=== PATIENT | male | born 1945 | race Caucasian/White ===

== ENCOUNTER → 2016-05-15 | Outpatient (CLI) | payer MEDICARE, OTHER | LOC: CT 09:23 | DX: I71.2 Thoracic aortic aneurysm, without rupture (principal); R91.1 Solitary pulmonary nodule; J43.9 Emphysema, unspecified; I77.89 Other specified disorders of arteries and arterioles; Z95.1 Presence of aortocoronary bypass graft | CPT/HCPCS: 71275; J7050; Q9965 ==

== ENCOUNTER → 2016-06-19 | Outpatient (CLI) | payer MEDICARE, OTHER | LOC: HEART 5 14:19 | DX: J44.9 Chronic obstructive pulmonary disease, unspecified (principal) | CPT/HCPCS: 94060; 94729 ==

== ENCOUNTER → 2016-07-27 | Outpatient (CLI) | payer MEDICARE, OTHER | LOC: HEART 5 10:36 | DX: Z90.2 Acquired absence of lung [part of] (principal) | CPT/HCPCS: 71020-FX ==

== ENCOUNTER → 2016-09-11 | Outpatient (CLI) | payer MEDICARE, OTHER | LOC: KOH-I 14:55 | DX: R05 Cough (principal); J90 Pleural effusion, not elsewhere classified; J98.11 Atelectasis | CPT/HCPCS: 71020 ==

== ENCOUNTER → 2020-05-10 | Outpatient (CLI) | payer MEDICARE, OTHER ==
[~2020-05-10] MED LIST: COUMADIN4 MG PO; COUMADIN5 MG PO; ECOTRIN81 MG PO; FLOMAX0.4 MG PO; LEVAQUIN500 MG PO; LIPITOR TAB 1010 MG PO; MEDROL4 MG PO; METOPROLOL TART25 MG PO; PREDNISONE10 MG PO; STIOLTO RESPIMAT; SYNTHROID25 MCG PO; VENTOLIN HFA 66.7 GM INH; ZITHROMAX250 MG PO
== END ==
LOC: KOH-I 05-03 11:30
DX: R93.89 Abnormal findings on diagnostic imaging of other specified body structures (principal); I71.2 Thoracic aortic aneurysm, without rupture; J43.9 Emphysema, unspecified; R91.8 Other nonspecific abnormal finding of lung field
CPT/HCPCS: 71250

== ENCOUNTER → 2020-11-09 | Outpatient (CLI) | payer MEDICARE, OTHER | LOC: KOH-I 10:44 | DX: R91.8 Other nonspecific abnormal finding of lung field (principal) | CPT/HCPCS: 71250 ==

== ENCOUNTER 2020-12-10 11:01 | Emergency (ER) | payer MEDICARE, OTHER ==
[2020-12-10 11:34] LABS: RED BLOOD COUNT 4.61 M/UL (4.20-5.50); WHITE BLOOD COUNT 8.6 K/UL (4.5-11.0)
[2020-12-10 12:02] LABS: BUN/CREATININE RATIO 12 (0-10)
== END 2020-12-10 14:53 | disposition home or self-care (01) ==
LOC: ER1 11:01
PROVIDERS: Emergency Medicine
DX: I71.4 Abdominal aortic aneurysm, without rupture (principal); J44.9 Chronic obstructive pulmonary disease, unspecified; E03.9 Hypothyroidism, unspecified; F17.210 Nicotine dependence, cigarettes, uncomplicated
CPT/HCPCS: 71275; 80053; 82550; 82553; 83874; 84484; 85025; 85610; 85730; 93005; 99284; Q9967

== ENCOUNTER → 2021-03-15 | Outpatient (CLI) | payer MEDICARE, OTHER | LOC: RT 14:02 | DX: R09.02 Hypoxemia (principal); I95.1 Orthostatic hypotension | CPT/HCPCS: 36600; 82803 ==

== ENCOUNTER → 2021-07-26 | Outpatient (CLI) | payer MEDICARE, OTHER ==
[2021-07-26 12:09] LABS: BUN/CREATININE RATIO 15 (0-10)
== END ==
LOC: CT 11:00
PROVIDERS: Nurse Practitioner Family
DX: I71.2 Thoracic aortic aneurysm, without rupture (principal); I10 Essential (primary) hypertension; R10.9 Unspecified abdominal pain; Z95.2 Presence of prosthetic heart valve; R91.1 Solitary pulmonary nodule; N40.0 Benign prostatic hyperplasia without lower urinary tract symptoms
CPT/HCPCS: 36415; 71250; 80048; Q9967

== ENCOUNTER 2021-08-04 23:40 | Emergency (ER) | payer MEDICARE, OTHER ==
[2021-08-05 00:11] LABS: HEMOGLOBIN 15.5 gm/dl (14.0-17.5); RED BLOOD COUNT 4.68 M/UL (4.20-5.50); WHITE BLOOD COUNT 9.6 K/UL (4.5-11.0)
[2021-08-05 00:34] LABS: BUN/CREATININE RATIO 20 (0-10)
[2021-08-05] MEDS ORDERED: DOXYCYCLINE HY100 MG PO (01:47)
[2021-08-05] MEDS ORDERED: IPRAT-ALBUT 0.5-3 ML INH (01:47)
[2021-08-05] MEDS ORDERED: OMNICEF 300 MG300 MG PO (01:47)
[2021-08-05] MEDS ORDERED: PREDNISONE20 MG PO (01:47)
== END 2021-08-05 02:05 | disposition home or self-care (01) ==
LOC: ER1 23:40
PROVIDERS: Family Medicine
DX: J44.0 Chronic obstructive pulmonary disease with (acute) lower respiratory infection (principal); J18.9 Pneumonia, unspecified organism; E87.1 Hypo-osmolality and hyponatremia; Z79.01 Long term (current) use of anticoagulants; Z99.81 Dependence on supplemental oxygen; Z95.2 Presence of prosthetic heart valve; Z20.822 Contact with and (suspected) exposure to COVID-19
CPT/HCPCS: 0240U; 36600; 71045; 80053; 82550; 82553; 82803; 83605; 83880; 84484; 85025; 85610; 87040; 93005; 94664; 96374; 96375; 99285; J0696; J2930

== ENCOUNTER → 2021-08-16 | Outpatient (CLI) | payer MEDICARE, OTHER ==
[~2021-08-16] MED LIST changes: +DOXYCYCLINE HY100 MG PO; +IPRAT-ALBUT 0.5-3 ML INH; +OMNICEF 300 MG300 MG PO; +PREDNISONE20 MG PO
== END ==
LOC: KOH-I 10:04
DX: J44.0 Chronic obstructive pulmonary disease with (acute) lower respiratory infection (principal); J18.9 Pneumonia, unspecified organism; R91.8 Other nonspecific abnormal finding of lung field
CPT/HCPCS: 71046

== ENCOUNTER 2021-08-23 01:33 | Inpatient (IN) | payer MEDICARE, OTHER ==
[~2021-08-23] VITALS: Ht 182.9 cm; Wt 55.1 kg
[~2021-08-23 01:33] MED LIST changes: -METOPROLOL TART25 MG PO
[2021-08-23 02:11] LABS: HEMOGLOBIN 14.2 gm/dl (14.0-17.5); RED BLOOD COUNT 4.31 M/UL (4.20-5.50); WHITE BLOOD COUNT 16.7 K/UL (4.5-11.0)
[2021-08-23 02:35] LABS: BUN/CREATININE RATIO 26 (0-10)
[2021-08-23] MEDS ORDERED: PANTOPRAZOLE SO20 MG PO (11:56)
[2021-08-23] MEDS ORDERED: MEGESTROL400 MG/11 PO (11:57)
[2021-08-23] MEDS ORDERED: WARFARIN SODIUM4 MG PO (12:00)
[2021-08-23] MEDS ORDERED: WARFARIN SODIUM5 MG PO (12:03)
[2021-08-23] MEDS ORDERED: ATORVASTATIN CA10 MG PO (12:06)
[2021-08-23] MEDS ORDERED: ALBUTEROL2.5 MG/3 M INH (12:07)
[2021-08-23] MEDS ORDERED: TRELEGY ELLIPT1 EACH INH (12:08)
[2021-08-23] MEDS ORDERED: METOPROLOL TART50 MG PO (12:40)
[2021-08-24 02:26] LABS: HEMOGLOBIN 13.9 gm/dl (14.0-17.5); RED BLOOD COUNT 4.21 M/UL (4.20-5.50); WHITE BLOOD COUNT 16.2 K/UL (4.5-11.0)
[2021-08-24 02:48] LABS: BUN/CREATININE RATIO 26 (0-10)
[2021-08-25 04:13] LABS: HEMOGLOBIN 13.5 gm/dl (14.0-17.5); RED BLOOD COUNT 4.14 M/UL (4.20-5.50); WHITE BLOOD COUNT 14.4 K/UL (4.5-11.0)
[2021-08-25 04:38] LABS: BUN/CREATININE RATIO 36 (0-10)
[2021-08-26 04:32] LABS: HEMOGLOBIN 13.2 gm/dl (14.0-17.5); RED BLOOD COUNT 4.08 M/UL (4.20-5.50); WHITE BLOOD COUNT 13.1 K/UL (4.5-11.0)
[2021-08-26 05:07] LABS: BUN/CREATININE RATIO 44 (0-10)
[2021-08-26] MEDS ORDERED: OMNICEF 300 MG300 MG PO (11:23)
[2021-08-26] MEDS ORDERED: MEDROL DOSEPAK 24 MG PO (11:23)
== END 2021-08-26 13:36 | disposition home or self-care (01) | DRG 189 ==
LOC: ER1 01:33 → M/S 06:50 → CDU 06:50 → M/S 19:12
PROVIDERS: Student in an Organized Health Care Education/Training Program; ADMIT Internal Medicine
PROC: B24BZZZ Ultrasonography of Heart with Aorta (ICD-10-PCS; principal; 2021-08-23)
DX: J96.21 Acute and chronic respiratory failure with hypoxia (principal); J44.1 Chronic obstructive pulmonary disease with (acute) exacerbation; J44.0 Chronic obstructive pulmonary disease with (acute) lower respiratory infection; J20.9 Acute bronchitis, unspecified; D72.829 Elevated white blood cell count, unspecified; T38.0X5A Adverse effect of glucocorticoids and synthetic analogues, initial encounter; Z20.822 Contact with and (suspected) exposure to COVID-19; I10 Essential (primary) hypertension; E78.5 Hyperlipidemia, unspecified; B96.89 Other specified bacterial agents as the cause of diseases classified elsewhere; Z99.81 Dependence on supplemental oxygen; Z95.2 Presence of prosthetic heart valve; Z85.118 Personal history of other malignant neoplasm of bronchus and lung
CPT/HCPCS: ECHO; 0240U; 36415; 71045; 71260; 80048; 80053; 80202; 82550; 82553; 83880; 84484; 85025; 85027; 85610; 87070; 87077; 87186; 87205; 93306; 94640; 94664; 94667; 94668; 94760; 96374; 96375; 96376; 99285; J1940; J2185; J2920; J2930; J3370; J7030; J7070; Q9967

== ENCOUNTER → 2021-09-08 | Outpatient (CLI) | payer MEDICARE, OTHER ==
[~2021-09-08] MED LIST changes: +ALBUTEROL2.5 MG/3 M INH; +ATORVASTATIN CA10 MG PO; +MEDROL DOSEPAK 24 MG PO; +MEGESTROL400 MG/11 PO; +METOPROLOL TART50 MG PO; +PANTOPRAZOLE SO20 MG PO; +TRELEGY ELLIPT1 EACH INH; +WARFARIN SODIUM4 MG PO; +WARFARIN SODIUM5 MG PO
== END ==
LOC: RAD 15:25
DX: R09.02 Hypoxemia (principal); J98.4 Other disorders of lung; J84.10 Pulmonary fibrosis, unspecified; R91.8 Other nonspecific abnormal finding of lung field
CPT/HCPCS: 36600; 71046; 82803

== ENCOUNTER 2021-09-09 08:37 | Emergency (ER) | payer MEDICARE, OTHER | END 2021-09-09 09:19 | disposition E | LOC: ER1 08:37 | DX: I46.9 Cardiac arrest, cause unspecified (principal); J44.9 Chronic obstructive pulmonary disease, unspecified; I10 Essential (primary) hypertension | CPT/HCPCS: 99285; J0171 ==